=== PATIENT | male | born 1990 | race Caucasian/White ===

== ENCOUNTER 2017-09-10 08:17 | Day surgery (SDC) | payer OTHER ==
[~2017-09-10] VITALS: Ht 172.7 cm; Wt 69.6 kg
[2017-09-10] VITALS (11 sets, daily range): BP systolic 134–153; BP diastolic 71–97; PULSE 57–107; RESP 14–24; Ht 172.7 cm; Wt 69.6 kg
[~2017-09-10 08:17] MED LIST: ATROPINE 1 MG/10 ML SYRINGE IV PRN; DIPHENHYDRAMINE 50 MG INJ IV PRN; EPHEDrine SULFATE 50 MG/5 ML SYG IV PRN; FENTAnyl 50 MCG/ML VIAL IV PRN; HYDROmorphONE (0.2 MG/ML) 10ML SYG IV PRN; LABETALOL HCL 20MG INJ IV PRN; MEPERIDINE 25 MG INJ IV PRN; MIDAZOLAM 1 MG/ML 2 ML INJ IV PRN; ONDANSETRON 4 MG INJ IV PRN; OXYCODONE/ACETAMINOPHEN (5/325) TAB PO PRN; SUGAMMADEX SODIUM 200 MG/2 ML VIAL IV ONE; hydrALAzine 20 MG INJ IV PRN; morphine (1 MG/ML) 10ML SYRINGE IV PRN
[2017-09-10] MEDS ORDERED: LIDOCAINE 2% (SDV) 5 ML INJ ONE ×2 (09:08→11:55)
[2017-09-10] MEDS ORDERED: GLYCOPYRROLATE 1 MG INJ ONE ×2 (09:08→11:55)
[2017-09-10] MEDS ORDERED: ROCURONIUM 50 MG INJ ONE ×2 (09:08→11:55)
[2017-09-10] MEDS ORDERED: MIDAZOLAM 1 MG/ML 2 ML INJ ONE ×2 (09:08→11:56)
[2017-09-10] MEDS ORDERED: NEOSTIGMINE 3 MG/3 ML SYRINGE ONE ×2 (09:08→11:55)
[2017-09-10] MEDS ORDERED: FENTAnyl 50 MCG/ML VIAL ONE ×2 (09:08→11:56)
[2017-09-10] MEDS ORDERED: PROPOFOL 20 ML ONE ×2 (09:08→11:55)
[2017-09-10] MEDS ORDERED: ROPIVACAINE 0.5 % 30 ML VIAL ONE ×2 (09:09→12:33)
[2017-09-10] MEDS ORDERED: DEXAMETHASONE 4 MG/ML 1 ML INJ ONE (09:10)
[2017-09-10] MEDS ORDERED: ONDANSETRON 4 MG INJ ONE (09:12)
[2017-09-10] MEDS ORDERED: SOD CHLORIDE 0.9% 1,000 ML IV SCH (12:13)
--- NOTE | 2017-09-10 12:13 | HPN ---
Date/Time of Note Date/Time of Note DATE: 09/10/17 TIME: 12:13 Interval H&P Admission Note Pt. seen H&P reviewed: No system changes NONI BARNEY MD Sep 10, 2017 12:13
[2017-09-10] MEDS ORDERED: OXYCODONE/ACETAMINOPHEN (5/325) TAB PO PRN ×2 (12:30)
[2017-09-10] MEDS ORDERED: ONDANSETRON 4 MG INJ IV PRN (12:30)
[2017-09-10] MEDS ORDERED: morphine 2 MG INJ IV PRN (12:30)
[2017-09-10] MEDS ORDERED: POLYMYXIN/BACITRACIN 1L IRRIG ONE (12:33)
[2017-09-10] MEDS ORDERED: SODIUM CL BACTERIOSTATIC 30 ML INJ ONE (12:33)
[2017-09-10] MEDS ORDERED: THROMBIN 5000 UNIT VIAL ONE (12:33)
[2017-09-10] MEDS ORDERED: POVIDONE IODINE 10% 28.4 GM OINT ONE (12:33)
[2017-09-10] MEDS ORDERED: GELATIN SIZE 100 SPONGE ONE (12:33)
[2017-09-10] MEDS ORDERED: HEPARIN 1000 UNITS/ML 10 ML INJ ONE (12:33)
[2017-09-10] MEDS ORDERED: CEFAZOLIN 1 GM INJ ONE (13:28)
[2017-09-10] MEDS ORDERED: LIDOCAINE 4% CR ONE (13:59)
--- NOTE | 2017-09-10 16:41 | OPPN ---
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
--- NOTE | 2017-09-10 19:53 | RADRPT ---
PROCEDURE: Intraoperative imaging of the right ankle with fluoroscopy. CLINICAL INDICATION: Right ankle pain. Intraoperative. TECHNIQUE: 2 images of the right ankle were obtained in the operating room with an image intensifi er. No radiologist was in attendance. Fluoroscopy time is 0.0 minutes. COMPARISON: No prior study is available for comparison. FINDINGS: The images demonstrate varus stress on the ankle. IMPRESSION: 1. Intraoperative imaging of the right ankle. RPTAT: QQ .Jose Phillips MD, MD Date Time Electronically viewed and signed by .Jose Phillips MD, on 09/10/2017 19:53 .R/
--- NOTE | 2017-09-10 22:06 | OPR ---
DATE OF OPERATION: 09/10/2017 PREOPERATIVE DIAGNOSES: 1. Failed osteochondral lesion of the lateral talar dome surgery in the past. 2. Recurrent pain with unstable osteochondral lesion, lateral talar dome. POSTOPERATIVE DIAGNOSES: 1. Failed osteochondral lesion of the lateral talar dome surgery in the past. 2. Recurrent pain with unstable osteochondral lesion, lateral talar dome. 3. Adhesions, scar tissue, and fibrosis of the right ankle. OPERATION PERFORMED: Right iliac crest bone marrow aspiration. SURGEON: Benjamin Barney MD. HOOK UP DRIVER: Son Lu MD. ANESTHESIA: General. DESCRIPTION OF PROCEDURE: The patient taken to the operating room, placed in supine position. Sati sfactory general anesthesia was administered, 2 grams Ancef given intravenously. The right iliac cr est was prepped and draped in the usual manner. A small isadora incision was made over the iliac crest . The Jamshidi needle was inserted and 60 mL of bone marrow aspirate was obtained. This was given to the [place] district representative to spin down for the bone marrow aspirate. Wound is irrigated with an tibiotic solution and closed with 4-0 black nylon. Steri-Strips and compression dressing was appli ed. Patient was then repositioned for the ankle procedure. Dictated By: BENJAMIN BARNEY MD RF/NTS Conf#: [id number] DID#: [id number]
--- NOTE | 2017-09-10 22:14 | OPR ---
DATE OF OPERATION: 09/10/2017 PREOPERATIVE DIAGNOSES: 1. Failed osteochondral lesion surgery, right ankle. 2. Rule out instability, right ankle. POSTOPERATIVE DIAGNOSES: 1. Failed osteochondral surgery, lateral talar dome, right ankle. 2. 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 3. Adhesion, scar tissue, and fibrosis. 4. Mild instability, left ankle. No instability of right ankle. 5. Loose body, right ankle. OPERATION PERFORMED: 1. Bilateral inversion stress x-rays under anesthesia and fluoroscopy. 2. Redo arthroscopy right ankle with soft distraction. 3. Excision osteochondral lesion, lateral talar dome, 14 x 6 mm. 4. Drilling and microfracture, lateral osteochondral lesion. 5. Insertion micronized cartilage with bone marrow aspirate to the osteochondral lesion bed. 6. Extensive debridement of the ankle. 7. Short leg splint. 8. Removal of loose osteochondral body greater than 1 cm. SURGEON: Noni Aguayo MD. BOBBIN PAINTER: Son Lu MD. ANESTHESIA: General with popliteal block. DESCRIPTION OF PROCEDURE: The patient taken to the operating room and placed in supine position. S atisfactory popliteal block was given, satisfactory general anesthesia administered, 2 grams Ancef g iven intravenously. Previously the bone marrow aspirate had been obtained and was being spun down. Right thigh secured in the thigh howell after carefully padding. The right leg was prepped and drap ed in usual manner. Superficial peroneal nerve was marked out. The tourniquet inflated to 250 mmHg and the ankle was distracted with a soft tissue strap. Standard anteromedial, anterolateral, and p osterolateral portals were used, using extreme caution. There was synovitis and scarring throughout the ankle, worse medially, anterior distal tibia, and laterally in the anterior gutter. Significan t fibrosis was seen in the lateral and anterior gutter. There was an osteochondral loose body great er than 1 cm in the anterior gutter. The previously treated osteochondral lesion in the lateral marcelino ar dome was soft and loose with articular fraying. We felt this had to be re-debrided and treated. A shaver was inserted and the medial gutter was debrided. All the soft tissue peeled off the dista l tibia. Lateral gutter was debrided. Grasper was inserted and the loose body was removed. Anteri or gutter and posterior gutters were debrided. After complete debridement, we made our posterolater al incision above the transverse. Ligament using different angled curettes, we debrided the osteoch ondral lesion to a stable edge. It was on the shoulder area unfortunately. Once stable debridement had been done, it measured 14 x 6 mm. Multiple microfracture holes were placed in the area as well . The area was then dried carefully and micronized cartilage was mixed with bone marrow aspirate and i njected onto the bed and impacted. Fibrin glue was then used to seal it. We waited 5 minutes, and we moved the ankle back and forth, and it was stable. The wounds irrigated clear. Wounds were clos ed with 4-0 black nylon. Compression dressing was applied with posterior splint in neutral position . Intraprocedure sponge and needle count was correct. Patient tolerated procedure well. ASSISTANT NEWS DIRECTOR ORTHOPEDIC SURGEON: During the procedure, an service assistant orthopedic surgeon was used at my request. The service assistant helped with manipulating the ankle, distracting the ankle, and also with liliana rofracturing while I positioned the arthroscope in the appropriate place. Without a skilled orthope dic surgeon assisting me, this could not have been done; therefore, should be compensated appropriat barbi. Dictated By: NONI GIRON/PILAR Conf#: [id number] DID#: [id number]
== END 2017-09-10 18:21 | disposition home or self-care (01) ==
LOC: SDS 08:17
PROVIDERS: ATTEND Orthopaedic Surgery
DX: M93.271 Osteochondritis dissecans, right ankle and joints of right foot (principal); M25.371 Other instability, right ankle; L90.5 Scar conditions and fibrosis of skin
CPT/HCPCS: 29891; 29892; 73610; C1713; J0690; J1100; J1644; J2175; J2250; J2405; J2710; J2795; J3010